=== PATIENT | male | born 1955 | race Caucasian/White ===

== ENCOUNTER → 2017-03-06 | Outpatient (CLI) | payer OTHER, SELFPAY | PROVIDERS: Family Provider Physician Assistant; Visit Provider Physician Assistant | DX: J40 Bronchitis, not specified as acute or chronic (principal) | CPT/HCPCS: 71020 ==

== ENCOUNTER → 2017-03-13 | Outpatient (CLI) | payer OTHER, SELFPAY | PROVIDERS: Referring Provider Internal Medicine | DX: C90.00 Multiple myeloma not having achieved remission (principal) | CPT/HCPCS: 36415; 80053; 85025 ==

== ENCOUNTER → 2017-05-06 10:37 | Outpatient (CLI) | payer OTHER, SELFPAY ==
[2017-05-06 11:01] LABS: Eosinophils % 0.2 % (0.1-12.0); Lymphocytes # 0.6 K/mm3 (0.7-4.5); Lymphocytes % 17.1 K/mm3 (10-50); Mean Corpuscular HGB Conc 32.6 g/dL (31.8-35.4); Mean Corpuscular Hemoglobin 28.2 pg (27.0-31.2); Mean Corpuscular Volume 86.6 fl (80-94); Mean Platelet Volume 9.7 fl (7.4-10.4); Monocytes # 0.3 K/mm3 (0.1-1.0); Monocytes % 6.9 % (1.7-9.3); Neutrophils # 2.8 K/mm3 (1.8-7.8); Neutrophils % 75.8 % (37.0-80.0); Platelet Count 160 K/mm3 (142-424); Red Blood Count 2.67 M/mm3 (4.60-6.20); Red Cell Distribution Width 17.1 % (11.5-17.5); White Blood Count 3.6 K/mm3 (4.8-10.8)
[2017-05-06 11:18] LABS: Hematocrit 23.1 % (42.0-52.0); Hemoglobin 7.5 g/dL (14.1-18.0)
[2017-05-06 14:19] LABS: Alanine Aminotransferase 53 U/L (12-78); Albumin Level 2.7 gm/dL (3.4-5.0); Albumin/Globulin Ratio 0.4 (1.1-1.8); Alkaline Phosphatase 136 U/L (46-116); Anion Gap 13.2 mEq/L (5-15); Aspartate Amino Transferase 21 U/L (15-37); Bilirubin,Total 0.2 mg/dL (0.2-1.0); Blood Urea Nitrogen 30 mg/dL (7-18); Calcium 10.2 mg/dL (8.5-10.1); Carbon Dioxide 24 mmol/L (21.0-32.0); Chloride 104 mmol/L (98-107); Creatinine,Serum 1.12 mg/dL (0.70-1.30); Estimated Glomerular Filt Rate 66 ml/min (>60); GFR (African American) 80 ML/MIN (>60); Globulin 6.4 gm/dl (1.3-3.2); Glucose 69 mg/dL (74-106); Potassium 4.2 mmoL/L (3.5-5.1); Sodium 137 mmol/L (136-145); Total Protein,Serum 9.1 gm/dL (6.4-8.2)
== END ==
PROVIDERS: PCP Family Medicine; Visit Provider Registered Nurse
DX: C90.01 Multiple myeloma in remission (principal); E83.52 Hypercalcemia
CPT/HCPCS: 36415; 80053; 85025

== ENCOUNTER → 2017-05-28 08:48 | Outpatient (CLI) | payer OTHER, BC, SELFPAY ==
[2017-05-28 09:25] LABS: Basophils % 0.1 % (0.1-2.0); Eosinophils % 0.4 % (0.1-12.0); Hematocrit 27.5 % (42.0-52.0); Hemoglobin 8.7 g/dL (14.1-18.0); Lymphocytes # 0.5 K/mm3 (0.7-4.5); Lymphocytes % 19.5 K/mm3 (10-50); Mean Corpuscular HGB Conc 31.7 g/dL (31.8-35.4); Mean Corpuscular Hemoglobin 29.7 pg (27.0-31.2); Mean Corpuscular Volume 93.7 fl (80-94); Mean Platelet Volume 9.7 fl (7.4-10.4); Monocytes # 0.2 K/mm3 (0.1-1.0); Monocytes % 7.8 % (1.7-9.3); Neutrophils # 1.7 K/mm3 (1.8-7.8); Neutrophils % 72.2 % (37.0-80.0); Platelet Count 88 K/mm3 (142-424); Red Blood Count 2.93 M/mm3 (4.60-6.20); Red Cell Distribution Width 17.6 % (11.5-17.5); White Blood Count 2.3 K/mm3 (4.8-10.8)
[2017-05-28 09:51] LABS: Alanine Aminotransferase 36 U/L (12-78); Albumin Level 2.6 gm/dL (3.4-5.0); Albumin/Globulin Ratio 0.4 (1.1-1.8); Alkaline Phosphatase 88 U/L (46-116); Anion Gap 11.2 mEq/L (5-15); Aspartate Amino Transferase 9 U/L (15-37); Bilirubin,Total 0.2 mg/dL (0.2-1.0); Blood Urea Nitrogen 21 mg/dL (7-18); Calcium 8.7 mg/dL (8.5-10.1); Carbon Dioxide 25 mmol/L (21.0-32.0); Chloride 107 mmol/L (98-107); Creatinine,Serum 1.12 mg/dL (0.70-1.30); Estimated Glomerular Filt Rate 66 ml/min (>60); GFR (African American) 80 ML/MIN (>60); Globulin 6.4 gm/dl (1.3-3.2); Glucose 88 mg/dL (74-106); Potassium 4.2 mmoL/L (3.5-5.1); Sodium 139 mmol/L (136-145)
== END ==
PROVIDERS: Visit Provider Registered Nurse
DX: C90.01 Multiple myeloma in remission (principal); E83.52 Hypercalcemia
CPT/HCPCS: 36415; 80053; 85025

== ENCOUNTER → 2017-06-20 09:55 | Outpatient (CLI) | payer OTHER, MEDICAID, SELFPAY ==
[2017-06-20 09:55] VITALS: BP 152/71; PULSE 72; RESP 18; TEMP 36.6; O2SAT 97
[2017-06-20 10:56] VITALS: BP 134/75; PULSE 72; RESP 18; TEMP 36.6; O2SAT 96; BMI 35.2
== END ==
PROVIDERS: Family Provider Physician Assistant; PCP Family Medicine
DX: C90.00 Multiple myeloma not having achieved remission (principal)
CPT/HCPCS: 96365; G0463

== ENCOUNTER → 2017-06-21 09:53 | Outpatient (CLI) | payer OTHER, MEDICAID, SELFPAY ==
[2017-06-21 09:53] VITALS: BP 132/70; PULSE 75; RESP 18; TEMP 36.8; O2SAT 96
[2017-06-21 10:22] VITALS: BP 136/74; PULSE 75; RESP 18; TEMP 36.8; O2SAT 96; BMI 35.5
== END ==
PROVIDERS: Family Provider Physician Assistant; PCP Family Medicine
DX: C90.00 Multiple myeloma not having achieved remission (principal)
CPT/HCPCS: 96365; G0463

== ENCOUNTER 2017-06-25 10:45 | Outpatient (CLI) | payer OTHER, MEDICAID, SELFPAY ==
[2017-06-25 10:53] VITALS: BP 138/70; PULSE 72; RESP 18; TEMP 36.3; O2SAT 94
[2017-06-25 11:08] VITALS: BP 131/76; PULSE 74; RESP 18; O2SAT 95
[2017-06-25 11:23] VITALS: BP 129/64; PULSE 75; RESP 18; O2SAT 94
[2017-06-25 11:38] VITALS: BP 135/67; PULSE 76; RESP 18; O2SAT 95
[2017-06-25 12:00] VITALS: BP 133/65; PULSE 74; RESP 18; O2SAT 95
== END 2017-06-25 12:05 | disposition home or self-care (01) ==
LOC: INF 10:51
PROVIDERS: Family Provider Physician Assistant; PCP Family Medicine
DX: Z51.11 Encounter for antineoplastic chemotherapy (principal); C90.00 Multiple myeloma not having achieved remission
CPT/HCPCS: 96360; J1642

== ENCOUNTER 2017-06-26 13:05 | Outpatient (CLI) | payer OTHER, MEDICAID, SELFPAY ==
[2017-06-26 13:00] VITALS: BP 121/73; PULSE 70; RESP 18; TEMP 37.2; O2SAT 93
[2017-06-26 13:12] VITALS: BMI 34.7
[2017-06-26 13:25] VITALS: BP 138/67; PULSE 69; RESP 18; TEMP 37.1; O2SAT 93
[2017-06-26 13:40] VITALS: BP 126/66; PULSE 69; RESP 18; TEMP 37.1; O2SAT 93
[2017-06-26 13:41] LABS: Alanine Aminotransferase 29 U/L (12-78); Albumin Level 2.6 gm/dL (3.4-5.0); Albumin/Globulin Ratio 0.3 (1.1-1.8); Alkaline Phosphatase 58 U/L (46-116); Anion Gap 9.2 mEq/L (5-15); Aspartate Amino Transferase 24 U/L (15-37); Bilirubin,Total 0.3 mg/dL (0.2-1.0); Blood Urea Nitrogen 22 mg/dL (7-18); Carbon Dioxide 28 mmol/L (21.0-32.0); Chloride 102 mmol/L (98-107); Creatinine Clearance Estimated 102 mL/min (0-300); Creatinine,Serum 1.22 mg/dL (0.70-1.30); Estimated Glomerular Filt Rate 60 ml/min (>60); GFR (African American) 73 ML/MIN (>60); Globulin 8.9 gm/dl (1.3-3.2); Glucose 83 mg/dL (74-106); Potassium 4.2 mmoL/L (3.5-5.1); Sodium 135 mmol/L (136-145); Total Protein,Serum 11.5 gm/dL (6.4-8.2)
[2017-06-26 13:44] LABS: Calcium 13.9 mg/dL (8.5-10.1)
[2017-06-26 13:55] VITALS: BP 127/69; PULSE 69; RESP 18; TEMP 36.6; O2SAT 98
[2017-06-26 14:10] VITALS: BP 131/72; PULSE 72; RESP 18; TEMP 36.6; O2SAT 94
[2017-06-26 14:30] VITALS: BP 130/64; PULSE 69; RESP 18; TEMP 36.6; O2SAT 94
== END 2017-06-26 14:30 | disposition home or self-care (01) ==
LOC: INF 14:22
PROVIDERS: Family Provider Physician Assistant; PCP Family Medicine; Visit Provider Internal Medicine
DX: C90.00 Multiple myeloma not having achieved remission (principal)
CPT/HCPCS: 80053; 96360; J1642

== ENCOUNTER 2017-06-27 09:53 | Outpatient (CLI) | payer OTHER, MEDICAID, SELFPAY ==
[2017-06-27 10:07] VITALS: BP 143/69; PULSE 70; RESP 16; TEMP 36.9; O2SAT 94; BMI 34.7
[2017-06-27 11:31] VITALS: BP 142/75; PULSE 67; RESP 16; TEMP 37.1; O2SAT 94
--- NOTE | 2017-06-27 11:39 | PC.NURSE ---
(R) port flushed with 10ml Normal Saline and 5ml Heparin 100units/ml. Pt tolerated the procedure /s incident.
[2017-06-27 11:41] VITALS: BP 142/75; PULSE 69; RESP 16; TEMP 37.1; O2SAT 94
== END 2017-06-27 12:10 | disposition home or self-care (01) ==
LOC: INF 09:53
PROVIDERS: Family Provider Physician Assistant; PCP Family Medicine; Visit Provider Internal Medicine
DX: C90.00 Multiple myeloma not having achieved remission (principal)
CPT/HCPCS: 96360; 96365

== ENCOUNTER 2017-06-28 09:40 | Outpatient (CLI) | payer OTHER, MEDICAID, SELFPAY ==
--- NOTE | 2017-06-28 10:00 | PC.NURSE ---
Dr Solorio at [facility] fro Dr [place] gamino per patient's spouse.
--- NOTE | 2017-06-28 10:15 | PC.NURSE ---
Discussed case with Dr Solorio...order received for Serum Ca+ to be drawn and result reported to Dr Solorio...also received order for IV Phenergan 12.5mg to be given at this time
[2017-06-28 10:38] VITALS: BMI 34.7
[2017-06-28 10:52] VITALS: BP 148/66; PULSE 91; RESP 18; TEMP 36.6; O2SAT 94
[2017-06-28 11:04] LABS: Calcium 16.6 mg/dL (8.5-10.1)
--- NOTE | 2017-06-28 11:05 | PC.NURSE ---
Dr Solorio notified of Ca+ result 16.6...orders received to refer patient to ER...notified patient and spouse of results of lab work and need to transfer to ER...patient did not want to be seen in [facility] ER...stated They know me at and that is where my cancer doctor is so I want to go there Patient's agreed and stated I will drive him to myself ...Reiterated that patient could be seen in [facility] ER but patient and spouse declined again.
[2017-06-28 12:00] VITALS: BP 141/81; PULSE 71; RESP 18; TEMP 36.9; O2SAT 95
== END 2017-06-28 12:20 | disposition home or self-care (01) ==
LOC: INF 09:40
PROVIDERS: Family Provider Physician Assistant; PCP Family Medicine; Visit Provider Internal Medicine
DX: C90.00 Multiple myeloma not having achieved remission (principal)
CPT/HCPCS: 82310; 96360; 96365; 96375